=== PATIENT | female | born 1950 | race African-American/Black ===

== ENCOUNTER 2016-05-31 11:43 | Inpatient (IN) | payer OTHER ==
[~2016-05-31] VITALS: Ht 167.6 cm; Wt 90.7 kg
[2016-05-31 11:59] VITALS: BP 112/49
[2016-05-31 12:02] LABS: BASOPHILS % (AUTO) 1.5 % (0.0-2.0); EOSINOPHILS % (AUTO) 2.3 % (0.0-3.0); LYMPHOCYTES % (AUTO) 42.8 % (20.0-45.0); MEAN CORPUSCULAR HEMOGLOBIN 28.7 PG (27.0-31.0); MEAN CORPUSCULAR HGB CONC 30.9 G/DL (32.0-36.0); MEAN CORPUSCULAR VOLUME 93 FL (80-99); MEAN PLATELET VOLUME 10.7 FL (6.5-10.1); MONOCYTES % (AUTO) 8.4 % (1.0-10.0); NEUTROPHILS % (AUTO) 45.1 % (45.0-75.0); PLATELET COUNT 175 K/UL (150-450); RED BLOOD COUNT 4.39 M/UL (4.20-5.40); WHITE BLOOD COUNT 5.9 K/UL (4.8-10.8)
[2016-05-31 12:12] LABS: APPEARANCE,URINE SLIGHTLY CLOUDY; KETONES,URINE 1+ (NEGATIVE); LEUKOCYTE ESTERASE ,URINE 3+ (NEGATIVE); NITRITE,URINE NEGATIVE (NEGATIVE); PH,URINE 6 (4.5-8.0); PROTEIN,URINE 1+ (NEGATIVE); UROBILINOGEN,URINE 4 MG/DL (0.0-1.0)
[2016-05-31 12:15] LABS: ACETAMINOPHEN < 10 ug/mL (10-30); ALANINE AMINOTRANSFERASE 16 U/L (3-33); ALBUMIN/GLOBULIN RATIO 1.1 (1.0-2.7); ALCOHOL < 10 mg/dL; ANION GAP 15 (5-15); ASPARTATE AMINO TRANSFERASE 21 U/L (5-40); CALCIUM 9.4 mg/dL (8.6-10.2); CARBON DIOXIDE 28 mEQ/L (20-30); CHLORIDE 97 mEQ/L (98-107); GLOMERULAR FILTRATION RATE > 60 mL/min (>60); HEMOLYSIS 3; POTASSIUM 3.1 mEQ/L (3.4-4.9); SODIUM 140 mEQ/L (135-145); TOTAL PROTEIN 7.6 g/dL (6.6-8.7); TROPONIN I < 0.30 ng/mL (<=0.30)
[2016-05-31 12:21] LABS: WBC,URINE 30-40 /HPF (0 - 2)
[2016-05-31 12:22] LABS: BACTERIA,URINE MANY /HPF; SQUAMOUS EPITHELIAL CELL,UR FEW /LPF (NONE/OCC)
[2016-05-31 12:30] VITALS: BP 94/46
[2016-05-31] MEDS ORDERED: cefTRIAXone 1 GM in NS 55 ML IVPB ONE (13:15)
[2016-05-31 13:30] VITALS: BP 104/48
[2016-05-31 14:22] VITALS: BP 91/51
[2016-05-31] MEDS ORDERED: Nitroglycerin Subl 0.4mg tab (Bottle Of 25) SL PRN (14:30)
[2016-05-31] MEDS ORDERED: DuoNeb 0.5-3(2.5)mg/3ml neb HHN PRN (14:30)
[2016-05-31] MEDS ORDERED: Morphine Sulfate 2mg/ml Inj IVP PRN (14:30)
[2016-05-31] MEDS ORDERED: Miralax 17gm pkt ORAL PRN (14:30)
--- NOTE | 2016-05-31 14:37 | Emergency Room Report ---
History of Present Illness General Chief Complaint: Dizziness Source: Patient Present Illness HPI 65-year-old female presents ED for evaluation. Per EMS patient is dizzy and lethargic starting this morning. Patient states that she takes Ambien at night and may have mixed some other pills. Patient is not sure which medications she took. States she does have prescription for [place]. Denies any chest pain or shortness of breath. Denies any weakness in her arms or legs. Denies alcohol use. No other aggravating or relieving factors. Denies any other associated symptoms Allergies: Coded Allergies: No Known Allergies (Unverified , 05/31/16) Patient History Past Medical History: DM, HTN Past Surgical History: none Pertinent Family History: none Social History: Denies: alcohol use, drug use, smoking Now: No Immunizations: UTD Reviewed Nursing Documentation: PMH: Agreed, PSxH: Agreed Nursing Documentation-PMH Past Medical History: No History, Except For Hx Hypertension: Yes Hx Diabetes: Yes Review of Systems All Other Systems: negative except mentioned in HPI Physical Exam Vital Signs Date Time Temp Pulse Resp B/P Pulse Ox O2 Delivery O2 Flow Rate FiO2 05/31/16 11:37 97.7 72 18 138/88 100 Room Air Sp02 EP Interpretation: reviewed, normal General Appearance: no apparent distress, non-toxic, lethargic Head: normocephalic, atraumatic Eyes: bilateral eye PERRL, bilateral eye normal inspection ENT: hearing grossly normal, normal pharynx, no angioedema, normal voice Neck: full range of motion, supple/symm/no masses Respiratory: chest non-tender, lungs clear, normal breath sounds, speaking full sentences Cardiovascular #1: regular rate, rhythm, no edema Cardiovascular #2: 2+ carotid (R), 2+ carotid (L), 2+ radial (R), 2+ radial (L) , 2+ dorsalis pedis (R), 2+ dorsalis pedis (L) Gastrointestinal: normal bowel sounds, non tender, soft, non-distended, no guarding, no rebound Rectal: deferred Genitourinary: normal inspection, no CVA tenderness Musculoskeletal: back normal, gait/station normal, normal range of motion, non- tender Neurologic: sensory intact, speech normal, other - lethargic Psychiatric: memory normal, other - lethargic Reflexes: 3+ bicep (R), 3+ bicep (L), 3+ tricep (R), 3+ tricep (L), 3+ knee (R) , 3+ knee (L) Skin: normal color, no rash, warm/dry, well hydrated Lymphatic: no adenopathy Medical Decision Making Diagnostic Impression: Primary Impression: Overdose Qualified Codes: T50.901A - Poisoning by unspecified drugs, medicaments and biological substances, accidental (unintentional), initial encounter Additional Impressions: Substance abuse UTI (urinary tract infection) Qualified Codes: N39.0 - Urinary tract infection, site not specified ER Course Hospital Course 65-year-old female presents to ED with dizziness and lethargy. Took several ambien and other pills Differential diagnoses include: Post ictal, alcohol toxicity, intracranial injury Clinical course She placed on stretcher. On cardiac rn. After initial history and physical ordered labs, IV fluids, EKG, CT brain. Labs reviewed-electrolytes okay, leukocytosis, hemoglobin/hematocrit stable, Tox + opiates, amphetamines, BZs, PCP UA + bacteria CT brain shows no acute pathology given abx. She is protecting airway, stable but remains lethargic. Will require admission case discussed with Dr. Forbes and he agreed to accept the patient to his service for further care and support i. I feel this is a highly complex case requiring extensive working including EKG/Rhythm strip, Xray/CT/US, Blood/urine lab work, repeat exams while in ED, and administration of strong opiates/narcotics for pain control, admission to hospital or close patient follow up. Diagnosis - overdose, subsance abuse, UTI Admitted to telemetry in serious condition Labs Test 05/31/16 11:45 05/31/16 11:55 White Blood Count 5.9 K/UL (4.8-10.8) Red Blood Count 4.39 M/UL (4.20-5.40) Hemoglobin 12.6 G/DL (12.0-16.0) Hematocrit 40.6 % (37.0-47.0) Mean Corpuscular Volume 93 FL (80-99) Mean Corpuscular Hemoglobin 28.7 PG (27.0-31.0) Mean Corpuscular Hemoglobin Concent 30.9 G/DL (32.0-36.0) Red Cell Distribution Width 13.0 % (11.6-14.8) Platelet Count 175 K/UL (150-450) Mean Platelet Volume 10.7 FL (6.5-10.1) Neutrophils (%) (Auto) 45.1 % (45.0-75.0) Lymphocytes (%) (Auto) 42.8 % (20.0-45.0) Monocytes (%) (Auto) 8.4 % (1.0-10.0) Eosinophils (%) (Auto) 2.3 % (0.0-3.0) Basophils (%) (Auto) 1.5 % (0.0-2.0) Sodium Level 140 mEQ/L (135-145) Potassium Level 3.1 mEQ/L (3.4-4.9) Chloride Level 97 mEQ/L (98-107) Carbon Dioxide Level 28 mEQ/L (20-30) Anion Gap 15 (5-15) Blood Urea Nitrogen 19 mg/dL (7-23) Creatinine 1.0 mg/dL (0.5-0.9) Estimat Glomerular Filtration Rate > 60 mL/min (>60) Glucose Level 148 mg/dL (74-106) Calcium Level 9.4 mg/dL (8.6-10.2) Total Bilirubin 0.2 mg/dL (0.0-1.2) Aspartate Amino Transf (AST/SGOT) 21 U/L (5-40) Alanine Aminotransferase (ALT/SGPT) 16 U/L (3-33) Alkaline Phosphatase 72 U/L (35-104) Troponin I < 0.30 ng/mL (<=0.30) Total Protein 7.6 g/dL (6.6-8.7) Albumin 4.1 g/dL (3.5-5.2) Globulin 3.5 g/dL Albumin/Globulin Ratio 1.1 (1.0-2.7) Salicylates Level < 1 mg/dL (10-30) Acetaminophen Level < 10 ug/mL (10-30) Serum Alcohol < 10 mg/dL Urine Color Yellow Urine Appearance Slightly cloudy Urine pH 6 (4.5-8.0) Urine Specific [place] 1.015 (1.005-1.035) Urine Protein 1+ (NEGATIVE) Urine Glucose (UA) Negative (NEGATIVE) Urine Ketones 1+ (NEGATIVE) Urine Occult Blood 3+ (NEGATIVE) Urine Nitrite Negative (NEGATIVE) Urine Bilirubin Negative (NEGATIVE) Urine Urobilinogen 4 MG/DL (0.0-1.0) Urine Leukocyte Esterase 3+ (NEGATIVE) Urine RBC 5-10 /HPF (0 - 2) Urine WBC 30-40 /HPF (0 - 2) Urine Squamous Epithelial Cells Few /LPF (NONE/OCC) Urine Bacteria Many /HPF (NONE) Urine Opiates Screen Positive (NEGATIVE) Urine Barbiturates Screen Negative (NEGATIVE) Phencyclidine (PCP) Screen Positive (NEGATIVE) Urine Amphetamines Screen Positive (NEGATIVE) Urine Benzodiazepines Screen Positive (NEGATIVE) Urine Cocaine Screen Negative (NEGATIVE) Urine Marijuana (THC) Screen Negative (NEGATIVE) EKG Diagnostic Results Rate: normal Rhythm: NSR ST Segments: no acute changes ASA given to the pt in ED: No Rhythm Strip Diag. Results EP Interpretation: yes Rhythm: NSR, no PVC's, no ectopy CT/MRI/US Diagnostic Results CT/MRI/US Diagnostic Results : Imaging Test Ordered: CT head Impression no acute process Last Vital Signs Date Time Temp Pulse Resp B/P Pulse Ox O2 Delivery O2 Flow Rate FiO2 05/31/16 14:22 80 17 91/51 97 Room Air 05/31/16 11:59 97.4 Status: improved Disposition: ADMITTED INPATIENT Condition: Serious Referrals: [facility],REFERRING (PCP) LESTER CANALES M.D. May 31, 2016 14:37
[2016-05-31 15:09] VITALS: BP 104/42
[2016-05-31 16:00] VITALS: BP 153/66
[2016-05-31] MEDS ORDERED: D5 1/2NS w/KCl 20mEq 1,000 ML IV SCH (16:00)
[2016-05-31] MEDS: Cefepime HCl 2 GM in D5W 110 ML IV SCH (19:13)
[2016-05-31] MEDS: Vancomycin 1.25 GM in D5W 275 ML IVPB SCH (20:04)
[2016-05-31] MEDS: Heparin 5000 units/ml inj SUBQ SCH (21:06)
[2016-06-01] VITALS: BP 128/63
[2016-06-01 04:00] VITALS: BP 148/78
[2016-06-01] MEDS: Cefepime HCl 2 GM in D5W 110 ML IV SCH (04:45)
[2016-06-01] MEDS: Vancomycin 1.25 GM in D5W 275 ML IVPB SCH (05:20)
[2016-06-01 05:30] LABS: BASOPHILS % (AUTO) 1.2 % (0.0-2.0); LYMPHOCYTES % (AUTO) 32.8 % (20.0-45.0); MEAN CORPUSCULAR HEMOGLOBIN 29.7 PG (27.0-31.0); MEAN CORPUSCULAR HGB CONC 32.4 G/DL (32.0-36.0); MEAN CORPUSCULAR VOLUME 92 FL (80-99); MONOCYTES % (AUTO) 4.9 % (1.0-10.0); NEUTROPHILS % (AUTO) 58.3 % (45.0-75.0); PLATELET COUNT 137 K/UL (150-450); RED BLOOD COUNT 4.15 M/UL (4.20-5.40); RED CELL DISTRIBUTION WIDTH 13.3 % (11.6-14.8); WHITE BLOOD COUNT 4.4 K/UL (4.8-10.8)
[2016-06-01] MEDS ORDERED: PANTOPRAZOLE SO40 MG ORAL (06:00)
[2016-06-01] MEDS ORDERED: VENTOLIN HFA18 GM INH (06:00)
[2016-06-01] MEDS ORDERED: ATORVASTATIN CA10 MG ORAL (06:00)
[2016-06-01] MEDS ORDERED: METOPROLOL TART25 MG ORAL (06:00)
[2016-06-01] MEDS ORDERED: HYDROCHLOROTHIA50 MG ORAL (06:00)
[2016-06-01] MEDS ORDERED: HYDROCODON-ACE1 EA16 ORAL (06:00)
[2016-06-01 06:02] LABS: ALANINE AMINOTRANSFERASE 14 U/L (3-33); ALBUMIN/GLOBULIN RATIO 1.1 (1.0-2.7); ANION GAP 13 (5-15); ASPARTATE AMINO TRANSFERASE 20 U/L (5-40); CALCIUM 9.1 mg/dL (8.6-10.2); CARBON DIOXIDE 28 mEQ/L (20-30); CHLORIDE 102 mEQ/L (98-107); CREATININE 0.8 mg/dL (0.5-0.9); GLOMERULAR FILTRATION RATE > 60 mL/min (>60); HEMOLYSIS 4; POTASSIUM 2.9 mEQ/L (3.4-4.9); SODIUM 143 mEQ/L (135-145); TOTAL PROTEIN 6.7 g/dL (6.6-8.7)
[2016-06-01 08:14] VITALS: BP 126/58
[2016-06-01] MEDS: Heparin 5000 units/ml inj SUBQ SCH (08:45)
[2016-06-01] MEDS ORDERED: Tubing IV Secondary IV ONE (08:53)
--- NOTE | 2016-06-01 10:44 | Diagnostic Imaging Report ---
Indication: Shortness of breath Technique: XRAY CHEST 1 V Comparison: 04/22/10 Findings: Cardiomediastinal silhouette is stable. Atherosclerotic changes are seen. Left midlung subsegmental atelectasis is noted. There is no consolidation or pleural effusion. Degenerative changes of the spine are seen. Impression: Left midlung subsegmental atelectasis. Otherwise no acute cardiopulmonary disease.
--- NOTE | 2016-06-02 08:45 | Diagnostic Imaging Report ---
Indication: Dizziness and vertigo Technique: Continuous helical CT scanning of the head was performed utilizing automated exposure control without intravenous contrast material. Axial and coronal reconstructions were obtained. Comparison: 04/22/10 CT dose: Total DLP 1358 mGycm; CTDI vol 70.4 mGy Findings: There is no acute intracranial hemorrhage, mass effect or cortical edema. The ventricles, cisterns and sulci are stable. The posterior fossa and fourth ventricle are unremarkable. Sellar and suprasellar regions are grossly unremarkable. Visualized mastoid air cells and paranasal sinuses are unremarkable. No focal lesions of the bony calvarium or soft tissues of the scalp are seen. Impression: No evidence of acute intracranial hemorrhage, mass effect or cortical edema. MRI may be obtained for more sensitive evaluation as clinically indicated. The CT scanner at [facility] is accredited by the [employer] and the scans are performed using protocols designed to limit radiation exposure to as low as reasonably achievable to attain images of sufficient resolution adequate for diagnostic evaluation.
--- NOTE | 2016-06-02 09:27 | Discharge Summary ---
Discharge Summary Hospital Course Date of Admission May 31, 2016 at 13:52 Date of Discharge Jun 01, 2016 at 09:36 Admitting Diagnosis AMS, overdose, UTI Reason for Hospitalization: Chief Complaint: Dizziness HPI Charu Echaavrria is a 65 year old female who was admitted on May 31, 2016 at 13:52 for Altered Mental Status, Overdose, UTI. 65-year-old female presents ED for evaluation. Per EMS patient is dizzy and lethargic starting this morning. Patient states that she takes Ambien at night and may have mixed some other pills. Patient is not sure which medications she took. States she does have prescription for [place]. Denies any chest pain or shortness of breath. Denies any weakness in her arms or legs. Denies alcohol use. No other aggravating or relieving factors. Denies any other associated symptoms Patient History Past Medical History: DM, HTN Past Surgical History: none Pertinent Family History: none Social History: Denies: alcohol use, drug use, smoking Now: No Immunizations: UTD Reviewed Nursing Documentation: PMH: Agreed, PSxH: Agreed Nursing Documentation-PMH Past Medical History: No History, Except For Hx Hypertension: Yes Hx Diabetes: Yes Procedures Service Date: 05/31/16 Procedure: CT Head no Contrast Indication: Dizziness and vertigo Impression: No evidence of acute intracranial hemorrhage, mass effect or cortical edema. MRI may be obtained for more sensitive evaluation as clinically indicated. Hospital Course Diagnostic Impression: Primary Impression: Overdose Qualified Codes: T50.901A - Poisoning by unspecified drugs, medicaments and biological substances, accidental (unintentional), initial encounter Additional Impressions: Substance abuse UTI (urinary tract infection) Qualified Codes: N39.0 - Urinary tract infection, site not specified Differential diagnoses include: Post ictal, alcohol toxicity, intracranial injury ER Course Hospital Course 65-year-old female presents to ED with dizziness and lethargy. Took several Ambien and other pills. Clinical course She placed on stretcher. On electronic device monitor. After initial history and physical ordered labs, IV fluids, EKG, CT brain. Labs reviewed-electrolytes okay, leukocytosis, hemoglobin/hematocrit stable, Tox + opiates, amphetamines, BZs, PCP UA + bacteria CT brain shows no acute pathology given abx. She is protecting airway, stable but remains lethargic. Will require admission case discussed with Dr. Forbes and he agreed to accept the patient to his service for further care and support. Patient was transferred to telemetry and signed AMA before being seen by admitting doctor. Final Diagnosis Diagnosis - overdose, substance abuse, UTI Discharge Discharge Disposition Patient was discharged AMA I have been assigned to the discharge summary of this patient and did not provide any care for the patient. - Lary Lynne LABORATORY CLERK Discharge Diagnoses: (1) Acute encephalopathy Lary Lynne N.P. Jun 02, 2016 09:27
--- NOTE | 2016-06-04 16:17 | Cardiology Report ---
APPROVED REPORT EKG Measurement Heart [id number] Normal sinus rhythm Prolonged QT Abnormal ECG
== END 2016-06-01 09:36 | disposition left against medical advice (07) | DRG 812 ==
LOC: EDBD 11:43 → EMR 12:22 → EDBEDREQ 13:50 → EDBEDREQSVC 13:50 → 2E 13:52 → EDBEDREQ 14:26 → 2E 16:27
DX: T42.6X1A Poisoning by other antiepileptic and sedative-hypnotic drugs, accidental (unintentional), initial encounter (principal); G92 Toxic encephalopathy; T50.991A Poisoning by other drugs, medicaments and biological substances, accidental (unintentional), initial encounter; Y92.009 Unspecified place in unspecified non-institutional (private) residence as the place of occurrence of the external cause; E11.9 Type 2 diabetes mellitus without complications; I10 Essential (primary) hypertension; N39.0 Urinary tract infection, site not specified; F19.10 Other psychoactive substance abuse, uncomplicated
CPT/HCPCS: 36415; 70450; 71010; 80053; 80300; 80329; 81003; 84484; 85025; 87040; 87070; 87086; 87181; 87205; 93005

== ENCOUNTER 2016-09-04 14:12 | Emergency (ER) | payer OTHER ==
[~2016-09-04] VITALS: Ht 167.6 cm; Wt 88.5 kg
[~2016-09-04 14:12] MED LIST: ATORVASTATIN CA10 MG ORAL; HYDROCHLOROTHIA50 MG ORAL; HYDROCODON-ACE1 EA16 ORAL; METOPROLOL TART25 MG ORAL; PANTOPRAZOLE SO40 MG ORAL; VENTOLIN HFA18 GM INH
[2016-09-04 15:33] LABS: BASOPHILS % (AUTO) 1.3 % (0.0-2.0); EOSINOPHILS % (AUTO) 3.5 % (0.0-3.0); LYMPHOCYTES % (AUTO) 33.9 % (20.0-45.0); MEAN CORPUSCULAR HEMOGLOBIN 28.7 PG (27.0-31.0); MEAN CORPUSCULAR HGB CONC 30.5 G/DL (32.0-36.0); MEAN CORPUSCULAR VOLUME 94 FL (80-99); MEAN PLATELET VOLUME 8.2 FL (6.5-10.1); MONOCYTES % (AUTO) 8.2 % (1.0-10.0); PLATELET COUNT 207 K/UL (150-450); RED BLOOD COUNT 3.83 M/UL (4.20-5.40); RED CELL DISTRIBUTION WIDTH 13.9 % (11.6-14.8); WHITE BLOOD COUNT 8.7 K/UL (4.8-10.8)
[2016-09-04 15:39] LABS: ALANINE AMINOTRANSFERASE 11 U/L (3-33); ANION GAP 8 (5-15); ASPARTATE AMINO TRANSFERASE 15 U/L (5-40); CALCIUM 9.7 mg/dL (8.6-10.2); CARBON DIOXIDE 28 mEQ/L (20-30); CHLORIDE 101 mEQ/L (98-107); CREATININE 0.9 mg/dL (0.5-0.9); GLOMERULAR FILTRATION RATE > 60 mL/min (>60); HEMOLYSIS 1; POTASSIUM 4.2 mEQ/L (3.4-4.9); SODIUM 137 mEQ/L (135-145); TOTAL PROTEIN 8.1 g/dL (6.6-8.7)
[2016-09-04 15:46] LABS: INR 0.9 (0.9-1.1); PROTHROMBIN TIME 9.5 SEC (9.30-11.50)
[2016-09-04 15:58] LABS: APPEARANCE,URINE CLOUDY; KETONES,URINE NEGATIVE (NEGATIVE); LEUKOCYTE ESTERASE ,URINE 3+ (NEGATIVE); NITRITE,URINE POSITIVE (NEGATIVE); PH,URINE 6.5 (4.5-8.0); PROTEIN,URINE 4+ (NEGATIVE); UROBILINOGEN,URINE 1 MG/DL (0.0-1.0)
[2016-09-04 16:08] LABS: BACTERIA,URINE MANY /HPF; RBC,URINE 20-30 /HPF (0 - 2); SQUAMOUS EPITHELIAL CELL,UR FEW /LPF (NONE/OCC)
[2016-09-04] MEDS ORDERED: KEFLEX500 MG ORAL (16:11)
[2016-09-04 16:14] LABS: ICTOTEST NEGATIVE
[2016-09-04] MEDS ORDERED: Cephalexin 500mg cap ORAL ONE (16:15)
[2016-09-04 16:30] VITALS: BP 130/64
[2016-09-04 16:32] VITALS: BP 127/73
--- NOTE | 2016-09-04 16:37 | Emergency Room Report ---
History of Present Illness General Chief Complaint: Vaginal Source: Medical Record Present Illness HPI The patient is a 65-year-old female presenting for vaginal bleeding and dysuria. Patient states that the symptoms began today. It is described as a 10 out of 10 burning sensation to the vaginal area. Worse with urination. She denies radiating pain. She denies back pain. She denies any other areas from N, v, F, chills, vaginal DC Allergies: Coded Allergies: No Known Allergies (Unverified , 05/31/16) Patient History Past Medical History: see triage record Pertinent Family History: none Last Menstrual Period: 2009 Reviewed Nursing Documentation: PMH: Agreed, PSxH: Agreed Nursing Documentation-PMH Past Medical History: No History, Except For Hx Hypertension: Yes Hx Diabetes: Yes Hx Gastrointestinal Problems: No Review of Systems All Other Systems: negative except mentioned in HPI Physical Exam Vital Signs Date Time Temp Pulse Resp B/P Pulse Ox O2 Delivery O2 Flow Rate FiO2 09/04/16 14:16 97.9 84 14 130/64 98 Room Air Sp02 EP Interpretation: reviewed, normal General Appearance: no apparent distress, alert, GCS 15, non-toxic Head: normocephalic, atraumatic Eyes: bilateral eye PERRL, bilateral eye normal inspection Respiratory: chest non-tender, lungs clear, normal breath sounds, speaking full sentences Gastrointestinal: normal bowel sounds, soft, non-distended, no guarding, no rebound, tenderness - suprapubic Rectal: deferred Genitourinary: normal inspection, no CVA tenderness Musculoskeletal: back normal, gait/station normal, normal range of motion, non- tender Neurologic: alert, oriented x3, responsive, motor strength/tone normal, sensory intact, speech normal Psychiatric: judgement/insight normal, memory normal, mood/affect normal, no suicidal/homicidal ideation Skin: normal color, no rash, warm/dry, well hydrated Medical Decision Making PA Attestation Dr. Mayer is my supervising physician. Patient management was discussed with my supervising physician Diagnostic Impression: Primary Impression: Urinary tract infection Qualified Codes: N30.01 - Acute cystitis with hematuria ER Course The patient is a 65-year-old female presenting for vaginal bleeding and dysuria Differential diagnosis considered but not limited to: UTI, vaginitis, pyelonephritis, fibroids, among others PE: afebrile. NAD Abdomen is soft. Tenderness to palpation over suprapubic region only No CVA tenderness Blood work is unremarkable UA consistent with urinary tract infection The patient be given Keflex in the ER and discharged with the same medication ER precautions given Laboratory Tests Test 09/04/16 15:05 09/04/16 15:35 White Blood Count 8.7 K/UL (4.8-10.8) Red Blood Count 3.83 M/UL (4.20-5.40) L Hemoglobin 11.0 G/DL (12.0-16.0) L Hematocrit 36.0 % (37.0-47.0) L Mean Corpuscular Volume 94 FL (80-99) Mean Corpuscular Hemoglobin 28.7 PG (27.0-31.0) Mean Corpuscular Hemoglobin Concent 30.5 G/DL (32.0-36.0) L Red Cell Distribution Width 13.9 % (11.6-14.8) Platelet Count 207 K/UL (150-450) Mean Platelet Volume 8.2 FL (6.5-10.1) Neutrophils (%) (Auto) 53.0 % (45.0-75.0) Lymphocytes (%) (Auto) 33.9 % (20.0-45.0) Monocytes (%) (Auto) 8.2 % (1.0-10.0) Eosinophils (%) (Auto) 3.5 % (0.0-3.0) H Basophils (%) (Auto) 1.3 % (0.0-2.0) Prothrombin Time 9.5 SEC (9.30-11.50) Prothrombin Time INR 0.9 (0.9-1.1) PTT 26 SEC (23-33) Sodium Level 137 mEQ/L (135-145) Potassium Level 4.2 mEQ/L (3.4-4.9) Chloride Level 101 mEQ/L (98-107) Carbon Dioxide Level 28 mEQ/L (20-30) Anion Gap 8 (5-15) Blood Urea Nitrogen 18 mg/dL (7-23) Creatinine 0.9 mg/dL (0.5-0.9) Estimate Glomerular Filtration Rate > 60 mL/min (>60) Glucose Level 117 mg/dL (74-106) H Calcium Level 9.7 mg/dL (8.6-10.2) Total Bilirubin 0.2 mg/dL (0.0-1.2) Aspartate Amino Transferase (AST) 15 U/L (5-40) Alanine Aminotransferase (ALT) 11 U/L (3-33) Alkaline Phosphatase 100 U/L (35-104) Total Protein 8.1 g/dL (6.6-8.7) Albumin 4.2 g/dL (3.5-5.2) Globulin 3.9 g/dL Albumin/Globulin Ratio 1.0 (1.0-2.7) Urine Color Red Urine Appearance Cloudy Urine pH 6.5 (4.5-8.0) Urine Specific [place] 1.015 (1.005-1.035) Urine Protein 4+ (NEGATIVE) H Urine Glucose (UA) Negative (NEGATIVE) Urine Ketones Negative (NEGATIVE) Urine Occult Blood 5+ (NEGATIVE) H Urine Nitrite Positive (NEGATIVE) H Urine Bilirubin 1+ (NEGATIVE) H Urine Ictotest Negative Urine Urobilinogen 1 MG/DL (0.0-1.0) H Urine Leukocyte Esterase 3+ (NEGATIVE) H Urine RBC 20-30 /HPF (0 - 2) H Urine WBC 10-15 /HPF (0 - 2) H Urine Squamous Epithelial Cells Few /LPF (NONE/OCC) Urine Bacteria Many /HPF (NONE) H Lab Results Impression + nitrites, bacteria, and blood CBC, CMP unremarkable Last Vital Signs Date Time Temp Pulse Resp B/P Pulse Ox O2 Delivery O2 Flow Rate FiO2 09/04/16 14:16 97.9 84 14 130/64 98 Room Air Status: improved Disposition: HOME, SELF-CARE Condition: Improved Scripts Cephalexin* (KEFLEX*) 500 Mg Capsule 500 MG ORAL EVERY 6 HOURS, #28 CAP 0 Refills Prov: MARTINE MCNALLY 09/04/16 Patient Instructions: Urinary Tract Infection, Hematuria, Adult Additional Instructions: I discussed my findings with the patient. All questions and concerns have been answered. Treatment and medication compliance have been addressed. I advised the patient that they need to follow up with PMD in 3-5 days. Return to ED if symptoms worsen, new symptoms arise, or if needed for any reason. Patient verbalized understanding of discharge instructions. MARTINE MCNALLY Sep 04, 2016 16:37
== END 2016-09-04 16:35 | disposition home or self-care (01) ==
LOC: EMR 14:54
DX: N39.0 Urinary tract infection, site not specified (principal); E11.9 Type 2 diabetes mellitus without complications; I10 Essential (primary) hypertension
CPT/HCPCS: 36415; 80053; 81003; 85025; 85610; 85730; 87086; 96361; 96374